=== PATIENT | male | born 1935 | race Caucasian/White ===

== ENCOUNTER 2022-07-09 11:40 | Inpatient (IN) ==
[2022-07-09] MEDS ORDERED: SODIUM CHLORIDE 0.9% 500 ML IV STA (12:48)
[2022-07-09] MEDS ORDERED: ONDANSETRON 4 MG/2 ML VIAL IV STA (12:48)
[2022-07-09 13:05] LABS: Basophils # 0.1 10*3/uL (0.0-0.2); Eosinophils # 0.1 10*3/uL (0.0-0.87); Eosinophils % 1.4 % (0.00-10.9); Hematocrit 45.3 VOL% (42.0-52.0); Hemoglobin 14.5 GM/DL (14.0-18.0); Immature Granulocytes % 1.1 %; Immature Granulocytes Absolute 0.07 #; Lymphocytes # 0.7 10*3/uL (1.4-4.0); Lymphocytes % 11.5 % (21.2-54.2); Mean Corpuscular Volume 94.4 FL (87-102); Mean Platelet Volume 9.4 FL (9.6-12.0); Monocytes # 0.7 10*3/uL (0.11-0.8); Monocytes % 10.9 % (1.7-12.7); Neutrophils % 74.1 % (38.7-73.9); Platelet Count 342 T/CUMM (130-400); Red Cell Distribution Width 17.3 % (9.3-17.3); White Blood Count 6.2 T/CUMM (4-12)
[2022-07-09 14:11] LABS: Calcium 8.9 MG/DL (8.5-10.1); Osmolality,Calculated 278.8 MOS/KG (273-304); Potassium 4.1 MMOL/L (3.5-5.1)
[2022-07-09 15:37] LABS: Basophils # 0.1 10*3/uL (0.0-0.2); Basophils % 0.5 % (0.0-0.8); Eosinophils % 0.4 % (0.00-10.9); Hematocrit 25.9 VOL% (42.0-52.0); Hemoglobin 8.4 GM/DL (14.0-18.0); Immature Granulocytes % 0.9 %; Lymphocytes # 1.2 10*3/uL (1.4-4.0); Lymphocytes % 10.3 % (21.2-54.2); Mean Corpuscular HGB Conc 32.4 GM/DL (32-36); Mean Corpuscular Volume 95.2 FL (87-102); Mean Platelet Volume 9.2 FL (9.6-12.0); Monocytes # 1.3 10*3/uL (0.11-0.8); Monocytes % 11.8 % (1.7-12.7); Neutrophils % 76.1 % (38.7-73.9); Platelet Count 500 T/CUMM (130-400); Red Blood Count 2.72 MC/CUMM (3.8-5.5); Red Cell Distribution Width 17.3 % (9.3-17.3); White Blood Count 11.28 T/CUMM (4-12)
[2022-07-09] MEDS ORDERED: ACETAMINOPHEN 325 MG TABLET PO PRN (16:35)
[2022-07-09] MEDS ORDERED: ONDANSETRON 4 MG/2 ML VIAL IV PRN (16:35)
[2022-07-09] MEDS: DEXTROSE 5% NACL 0.45% 1,000 ML IV SCH (18:53)
[2022-07-09] MEDS: DOCUSATE SODIUM 100 MG CAPSULE PO SCH (23:30)
[2022-07-10] MEDS: cefTRIAXone 1,000 MG in SODIUM CHLORIDE 0.9% 100 ML IV SCH (00:05)
[2022-07-10 04:40] LABS: Basophils # 0.1 10*3/uL (0.0-0.2); Basophils % 0.8 % (0.0-0.8); Eosinophils # 0.3 10*3/uL (0.0-0.87); Eosinophils % 2.5 % (0.00-10.9); Hematocrit 26.1 VOL% (42.0-52.0); Immature Granulocytes % 1.1 %; Immature Granulocytes Absolute 0.12 #; Lymphocytes # 1.3 10*3/uL (1.4-4.0); Lymphocytes % 11.9 % (21.2-54.2); Mean Corpuscular HGB Conc 30.7 GM/DL (32-36); Mean Platelet Volume 9.6 FL (9.6-12.0); Monocytes # 1.3 10*3/uL (0.11-0.8); Monocytes % 12.3 % (1.7-12.7); Neutrophils % 71.4 % (38.7-73.9); Platelet Count 544 T/CUMM (130-400); Red Blood Count 2.72 MC/CUMM (3.8-5.5); Red Cell Distribution Width 17.6 % (9.3-17.3)
[2022-07-10 05:10] LABS: Albumin 2.2 G/DL (3.4-5.0); Bilirubin,Total 0.4 MG/DL (0.20-1.00); Calcium 8.2 MG/DL (8.5-10.1); Osmolality,Calculated 282.5 MOS/KG (273-304); Potassium 3.9 MMOL/L (3.5-5.1); Total Protein 7.2 G/DL (6.4-8.2)
[2022-07-10] MEDS: LEVOTHYROXINE 88 MCG TABLET PO SCH (06:00)
[2022-07-10] MEDS: DOCUSATE SODIUM 100 MG CAPSULE PO SCH ×2 (09:02→21:26)
[2022-07-10] MEDS: PANTOPRAZOLE 40 MG TABLET PO SCH (09:02)
[2022-07-10] MEDS: ASPIRIN EC 81 MG TABLET PO SCH (09:02)
[2022-07-10] MEDS: DEXTROSE 5% NACL 0.45% 1,000 ML IV SCH ×2 (10:22→23:38)
[2022-07-11] MEDS: cefTRIAXone 1,000 MG in SODIUM CHLORIDE 0.9% 100 ML IV SCH (00:05)
[2022-07-11 05:20] LABS: Basophils # 0.1 10*3/uL (0.0-0.2); Basophils % 0.9 % (0.0-0.8); Eosinophils # 0.5 10*3/uL (0.0-0.87); Eosinophils % 4.3 % (0.00-10.9); Hematocrit 27.2 VOL% (42.0-52.0); Hemoglobin 8.5 GM/DL (14.0-18.0); Immature Granulocytes % 1.5 %; Immature Granulocytes Absolute 0.17 #; Lymphocytes # 1.9 10*3/uL (1.4-4.0); Lymphocytes % 16.7 % (21.2-54.2); Mean Corpuscular HGB Conc 31.3 GM/DL (32-36); Mean Corpuscular Volume 95.4 FL (87-102); Mean Platelet Volume 9.4 FL (9.6-12.0); Monocytes # 1.6 10*3/uL (0.11-0.8); Monocytes % 14.1 % (1.7-12.7); Neutrophils % 62.5 % (38.7-73.9); Platelet Count 563 T/CUMM (130-400); Red Blood Count 2.85 MC/CUMM (3.8-5.5); Red Cell Distribution Width 17.3 % (9.3-17.3); White Blood Count 11.17 T/CUMM (4-12)
[2022-07-11] MEDS: LEVOTHYROXINE 88 MCG TABLET PO SCH (05:35)
[2022-07-11 05:41] LABS: Calcium 8.2 MG/DL (8.5-10.1); Potassium 3.5 MMOL/L (3.5-5.1)
[2022-07-11] MEDS: DOCUSATE SODIUM 100 MG CAPSULE PO SCH ×2 (08:43→21:28)
[2022-07-11] MEDS: PANTOPRAZOLE 40 MG TABLET PO SCH (08:43)
[2022-07-11] MEDS: ASPIRIN EC 81 MG TABLET PO SCH (08:43)
[2022-07-11] MEDS: DEXTROSE 5% NACL 0.45% 1,000 ML IV SCH ×2 (08:45→22:00)
[2022-07-11] MEDS ORDERED: MAGNESIUM HYDROXIDE SUSP 30 ML UDCUP PO PRN (10:20)
[2022-07-11] MEDS ORDERED: MAGNESIUM HYDROXIDE SUSP 30 ML UDCUP PO ONE (10:20)
[2022-07-11] MEDS ORDERED: BISACODYL 5 MG TABLET PO PRN (13:37)
[2022-07-12] MEDS: cefTRIAXone 1,000 MG in SODIUM CHLORIDE 0.9% 100 ML IV SCH (00:43)
[2022-07-12 04:55] LABS: Basophils # 0.1 10*3/uL (0.0-0.2); Eosinophils # 0.3 10*3/uL (0.0-0.87); Eosinophils % 2.9 % (0.00-10.9); Hematocrit 26.3 VOL% (42.0-52.0); Hemoglobin 8.6 GM/DL (14.0-18.0); Immature Granulocytes % 1.3 %; Immature Granulocytes Absolute 0.14 #; Lymphocytes # 1.5 10*3/uL (1.4-4.0); Lymphocytes % 14.7 % (21.2-54.2); Mean Corpuscular HGB Conc 32.7 GM/DL (32-36); Mean Corpuscular Volume 93.3 FL (87-102); Mean Platelet Volume 9.6 FL (9.6-12.0); Monocytes # 1.5 10*3/uL (0.11-0.8); Monocytes % 14.2 % (1.7-12.7); Neutrophils % 65.9 % (38.7-73.9); Platelet Count 587 T/CUMM (130-400); Red Blood Count 2.82 MC/CUMM (3.8-5.5); White Blood Count 10.41 T/CUMM (4-12)
[2022-07-12 05:15] LABS: Calcium 8.6 MG/DL (8.5-10.1); Osmolality,Calculated 273.8 MOS/KG (273-304); Potassium 3.8 MMOL/L (3.5-5.1)
[2022-07-12] MEDS: LEVOTHYROXINE 88 MCG TABLET PO SCH (06:25)
[2022-07-12] MEDS ORDERED: SODIUM CHLORIDE 0.9% 1,000 ML IV PRN (07:52)
[2022-07-12] MEDS ORDERED: SODIUM PHOSPHATE ENEMA 133 ML BOTTLE RECTAL ONE (08:00)
[2022-07-12] MEDS: PANTOPRAZOLE 40 MG TABLET PO SCH (09:04)
[2022-07-12] MEDS: DOCUSATE SODIUM 100 MG CAPSULE PO SCH ×2 (09:04→22:07)
[2022-07-12] MEDS: ASPIRIN EC 81 MG TABLET PO SCH (09:04)
[2022-07-12] MEDS: DEXTROSE 5% NACL 0.45% 1,000 ML IV SCH (22:07)
[2022-07-13] MEDS: cefTRIAXone 1,000 MG in SODIUM CHLORIDE 0.9% 100 ML IV SCH (01:14)
[2022-07-13] MEDS: LEVOTHYROXINE 88 MCG TABLET PO SCH (05:57)
[2022-07-13 08:14] VITALS: BP 133/70
[2022-07-13] MEDS: DOCUSATE SODIUM 100 MG CAPSULE PO SCH (09:24)
[2022-07-13] MEDS: PANTOPRAZOLE 40 MG TABLET PO SCH (09:24)
[2022-07-13] MEDS: ASPIRIN EC 81 MG TABLET PO SCH (11:41)
== END 2022-07-13 11:38 | disposition swing bed (61) | DRG 812 ==
LOC: N.ED 11:40 → N.EDINP 16:35 → N.TELES 21:04
PROVIDERS: ADMIT Family Medicine; ATTEND Family Medicine